=== PATIENT | male | born 1950 | race Caucasian/White ===

== ENCOUNTER 2019-07-06 16:59 | Emergency (ER) | payer MEDICARE ==
[~2019-07-06] VITALS: Ht 175.3 cm; Wt 86.4 kg
[2019-07-06 17:13] VITALS: BP 143/95
== END 2019-07-06 18:30 | disposition home or self-care (01) ==
LOC: ER 17:01
DX: S62.303A Unspecified fracture of third metacarpal bone, left hand, initial encounter for closed fracture (principal); W01.0XXA Fall on same level from slipping, tripping and stumbling without subsequent striking against object, initial encounter; Y93.89 Activity, other specified; Y92.89 Other specified places as the place of occurrence of the external cause; Y99.8 Other external cause status
CPT/HCPCS: 29125; 73130; 99283

== ENCOUNTER 2019-07-16 09:34 | Outpatient (CLI) | payer MEDICARE | END 2019-07-16 10:15 | disposition home or self-care (01) | LOC: ORTHO 09:34 | PROVIDERS: ATTEND Nurse Practitioner | DX: S62.393A Other fracture of third metacarpal bone, left hand, initial encounter for closed fracture (principal); W01.0XXA Fall on same level from slipping, tripping and stumbling without subsequent striking against object, initial encounter; Y93.89 Activity, other specified; Y92.89 Other specified places as the place of occurrence of the external cause; Y99.8 Other external cause status | CPT/HCPCS: 73130; G0463 ==

== ENCOUNTER 2019-08-11 14:59 | Outpatient (CLI) | payer MEDICARE | END 2019-08-11 16:30 | disposition home or self-care (01) | LOC: ORTHO 14:59 | PROVIDERS: ATTEND Orthopaedic Surgery | DX: S62.303D Unspecified fracture of third metacarpal bone, left hand, subsequent encounter for fracture with routine healing (principal); X58.XXXD Exposure to other specified factors, subsequent encounter | CPT/HCPCS: 73130; G0463 ==

== ENCOUNTER 2020-05-13 12:13 | Emergency (ER) | payer MEDICARE ==
[~2020-05-13] VITALS: Ht 175.3 cm; Wt 81.0 kg
--- NOTE | 2020-05-13 13:25 | NUR ---
Provider ORI Fagan is with the patient at this time.
[2020-05-13 14:23] LABS: BASOPHILS # (AUTO) 0.1 X10'3 (0-0.2); BASOPHILS % (AUTO) 1.1 % (0-1); EOSINOPHILS # (AUTO) 0.2 X10'3 (0-0.9); HEMATOCRIT 41.5 % (42.0-52.0); HEMOGLOBIN 13.9 g/dl (14.0-17.9); LYMPHOCYTES # (AUTO) 1.9 X10'3 (1.1-4.8); LYMPHOCYTES % (AUTO) 27.4 % (21-51); MEAN CORPUSCULAR HEMOGLOBIN 30.1 PG (27.0-31.0); MEAN CORPUSCULAR HGB CONC 33.5 g/dL (33.0-36.5); MEAN CORPUSCULAR VOLUME 89.9 FL (78-98); MONOCYTES # (AUTO) 0.8 X10'3 (0-0.9); MONOCYTES % (AUTO) 10.9 % (2-12); NEUTROPHILS % (AUTO) 57.6 % (42-75); PLATELET COUNT 200 X10'3 (140-440); RED BLOOD COUNT 4.62 X10'6 (4.70-6.10); RED CELL DISTRIBUTION WIDTH 14.2 % (11.5-14.5); WHITE BLOOD COUNT 6.9 X10'3 (4.5-11.0)
[2020-05-13 14:34] LABS: ALANINE AMINOTRANSFERASE 21 U/L (12-78); ALBUMIN 3.5 G/DL (3.4-5.0); ALBUMIN/GLOBULIN RATIO 0.9 (1.1-1.5); ALKALINE PHOSPHATASE 96 IU/L (46-116); ANION GAP 5 (8-16); ASPARTATE AMINO TRANSFERASE 17 U/L (10-37); BILIRUBIN,TOTAL 0.2 MG/DL (0.1-1.0); BLOOD UREA NITROGEN 19 MG/DL (7-18); BUN/CREATININE RATIO 18.3 (5.4-32.0); C-REACTIVE PROTEIN 1.08 MG/DL (0.0-0.5); CALCIUM 8.7 MG/DL (8.5-10.1); CHLORIDE 107 MMOL/L (99-107); CREATININE 1.04 MG/DL (0.60-1.10); GLUCOSE 89 MG/DL (70-104); POTASSIUM 4.4 MMOL/L (3.5-5.1); SODIUM 140 MMOL/L (135-145); TOTAL CARBON DIOXIDE 28.1 MMOL/L (24-32); TOTAL PROTEIN 7.2 G/DL (6.4-8.2); eGFR 71 ML/MIN
[2020-05-13 14:53] LABS: CLARITY,URINE CLEAR (Clear); COLOR,URINE STRAW (Yellow); GLUCOSE, URINE NEGATIVE (Neg); KETONES,URINE NEGATIVE (Neg); LEUKOCYTE ESTERASE ,URINE NEGATIVE (Neg); NITRITES, URINE NEGATIVE (Neg); OCCULT BLOOD,URINE SMALL (Neg); PROTEIN,URINE NEGATIVE (Neg); UROBILINOGEN,URINE 0.2 E.U/dL (0.2-1.0)
[2020-05-13 14:54] LABS: UA COLLECTION TYPE CLN CATCH MIDSTREAM
[2020-05-13 15:01] LABS: BACTERIA,URINE FEW /HPF (Neg); SQUAMOUS EPITHELIAL CELL,UR NONE SEEN /LPF (FEW); WBC,URINE 0-4 /HPF (0-4)
--- NOTE | 2020-05-13 16:22 | NUR ---
Pt is aware of the plan to transfer to [facility] in [place] and that we are awaiting an available bed at their facility.
[2020-05-13] MEDS ORDERED: cyclobenzaprine 10mg tablet PO ONE (17:35)
--- NOTE | 2020-05-13 19:01 | NUR ---
Attempted to phone report to Sw[facility] staff nurse to phone back regarding the report.
[2020-05-13 19:57] VITALS: BP 154/86
== END 2020-05-13 20:00 | disposition short-term general hospital (02) ==
LOC: ER 12:14
DX: M48.9 Spondylopathy, unspecified (principal)
CPT/HCPCS: 36415; 80053; 81001; 85025; 85651; 86140; 99285